=== PATIENT | female | born 1990 | race Caucasian/White ===

== ENCOUNTER 2019-08-06 16:08 | Emergency (ER) | payer MEDICAID ==
[~2019-08-06] VITALS: Ht 162.6 cm; Wt 54.0 kg
[~2019-08-06 16:08] MED LIST: CHLO25CA10 PO
[2019-08-06 16:52] LABS: HEMOGLOBIN 14.2 g/dl (12.0-16.0); MEAN PLATELET VOLUME 7.4 FL (7.4-10.4); MONOCYTES # (AUTO) 0.7 X10'3 (0-0.9)
[2019-08-06 16:53] LABS: BASOPHILS # (AUTO) 0.1 X10'3 (0-0.2); BASOPHILS % (AUTO) 0.6 % (0-1); EOSINOPHILS % (AUTO) 0.1 % (0-6); HEMATOCRIT 41.6 % (35.0-45.0); LYMPHOCYTES # (AUTO) 1.4 X10'3 (1.1-4.8); LYMPHOCYTES % (AUTO) 9.8 % (21-51); MEAN CORPUSCULAR HGB CONC 34.2 g/dL (33.0-36.5); MEAN CORPUSCULAR VOLUME 90.8 FL (78-98); NEUTROPHILS # (AUTO) 11.7 X10'3 (1.8-7.7); NEUTROPHILS % (AUTO) 84.5 % (42-75); PLATELET COUNT 605 X10'3 (140-440); RED BLOOD COUNT 4.58 X10'6 (4.20-5.60); RED CELL DISTRIBUTION WIDTH 14.8 % (11.5-14.5); WHITE BLOOD COUNT 13.8 X10'3 (4.5-11.0)
[2019-08-06 17:02] LABS: ALANINE AMINOTRANSFERASE 21 U/L (12-78); ALBUMIN 4.4 G/DL (3.4-5.0); ALBUMIN/GLOBULIN RATIO 1.4 (1.1-1.5); ALKALINE PHOSPHATASE 75 IU/L (46-116); ANION GAP 11 (8-16); ASPARTATE AMINO TRANSFERASE 19 U/L (10-37); BILIRUBIN,TOTAL 0.2 MG/DL (0.1-1.0); BLOOD UREA NITROGEN 12 MG/DL (7-18); BUN/CREATININE RATIO 15.8 (6.6-38.0); CALCIUM 9.4 MG/DL (8.5-10.1); CHLORIDE 104 MMOL/L (99-107); CREATININE 0.76 MG/DL (0.40-0.90); GLUCOSE 117 MG/DL (70-104); LIPASE 77 U/L (73-393); POTASSIUM 3.8 MMOL/L (3.5-5.1); SODIUM 138 MMOL/L (135-145); TOTAL PROTEIN 7.5 G/DL (6.4-8.2); eGFR 90 ML/MIN
[2019-08-06] MEDS ORDERED: famotidine 10mg tablet PO SCH (18:45)
[2019-08-06] MEDS ORDERED: normal saline 1000ML IV soln IVB ONE (18:45)
[2019-08-06] MEDS ORDERED: mag hydrox/Alum hydrox/simeth 30ml oral suspension PO ONE (18:45)
[2019-08-06 18:59] LABS: CLARITY,URINE CLEAR (Clear); COLOR,URINE YELLOW (Yellow); GLUCOSE, URINE NEGATIVE (Neg); KETONES,URINE 40 mg/dl (Neg); LEUKOCYTE ESTERASE ,URINE NEGATIVE (Neg); NITRITES, URINE NEGATIVE (Neg); OCCULT BLOOD,URINE TRACE-INTACT (Neg); PROTEIN,URINE TRACE mg/dl (Neg); UROBILINOGEN,URINE 0.2 E.U/dL (0.2-1.0)
[2019-08-06 19:04] LABS: URINE HCG NEGATIVE (NEG)
[2019-08-06 19:05] LABS: UA COLLECTION TYPE CLN CATCH MIDSTREAM
[2019-08-06 19:07] LABS: BACTERIA,URINE FEW /HPF (Neg); SQUAMOUS EPITHELIAL CELL,UR FEW /LPF (FEW); WBC,URINE 0-4 /HPF (0-4)
[2019-08-06] MEDS ORDERED: ondansetron 4mg rapidly disintigrating tab PO ONE (19:20)
[2019-08-06] MEDS ORDERED: acetaminophen 325mg tablet PO ONE (19:20)
[2019-08-06] MEDS ORDERED: ondansetron/PF 4mg/2ml inj IV ONE (19:25)
[2019-08-06 19:34] LABS: TROPONIN I < 0.04 NG/ML (0.0-0.05)
[2019-08-06] MEDS ORDERED: pantoprazole 40 MG vial IV ONE (19:55)
[2019-08-06] MEDS ORDERED: normal saline 1000ml 1,000 ML IV ONE (19:55)
[2019-08-06] MEDS ORDERED: PANT20TA3 PO (20:23)
[2019-08-06] MEDS ORDERED: ONDA4TAB6 PO (20:23)
[2019-08-06] MEDS ORDERED: DICY10CA88 PO (20:23)
--- NOTE | 2019-08-06 20:40 | NUR ---
DISCUSED WITH PATIENT ABOUT D/C PT REFUSNG TO GO HOME ASKING TO SPEAK TO THE DR . ROBYN LOPEZ TO BEDSIDE TO SPEAK WITH PATIENT. PT RAISING HER VOICE USING FOUL LANGUAGE ACTING HOSTILE ABOUT BEING SICHARGE. PA EXPLAINING THAT HER LABS ARE STABLE WELL HER VSS, AND THAT SHE HAS REFUSED ALL OTHER MEDICATION . PT ARUGING ABOUT HER CURRERNT SITUATION, UNABLE TO CONFIRM WHERE SHE IS STAYING SHE HAS BEEN IN [facility] SEEKING CARE. PT SASTES SHE SEES HER PRIMARY ONCE EVERY THREE MONTHS AND HE DOES NOTHING FOR HER . PT SCREAMING AND YELLING AT NURSING STAFF AND PA. SECURITY BROUGHT TO BEDSIDE . CHARGE NURSE AT [facility] TRYING TO EXPLAIN TO THE PATIENT HOW WE ARE TRYING TO RING SEWER HER CARE AND SHE IS REFUSING . PT USING OBSENITIES AND , PT SATES" U NEED EDUCATION AND A HIGHER IQ " , CALLING STAFF DUMB AND UNKNOWLEDAGABLE, YELLING . DISCONTINUED PATIENT IV, PT SIGNED DISCHARGED INSTRUCTION S, AND WAS ESCORTED OFF UNIT BY SECURITY.
--- NOTE | 2019-08-06 20:45 | NUR ---
PT ALREADY DISCHARGES / PRIOR TO UA TOXIC ORDER. PT HOSTILE . SECURITY AT BEDSIDE WELL CHARGE NURSE
[2019-08-06 20:58] VITALS: BP 120/77
== END 2019-08-06 20:47 | disposition home or self-care (01) ==
LOC: ER 16:10
DX: R10.10 Upper abdominal pain, unspecified (principal); R11.2 Nausea with vomiting, unspecified; R00.0 Tachycardia, unspecified; F12.90 Cannabis use, unspecified, uncomplicated; Z79.899 Other long term (current) drug therapy
CPT/HCPCS: 36415; 80053; 81001; 81025; 83690; 84145; 84484; 85025; 93005; 96361; 96374; 96375; 99284; C9113; J2405; J7030; 99283

== ENCOUNTER 2019-12-20 20:57 | Emergency (ER) | payer MEDICAID ==
[~2019-12-20] VITALS: Ht 162.6 cm; Wt 50.0 kg
[~2019-12-20 20:57] MED LIST changes: +ALB0.5UD IH; +BUSP10TA11 PO; -CHLO25CA10 PO; +DULO30CA52 PO; +PANT-47 PO; +PRAZ1CAP5 PO; +QUET25TA34 PO
[2019-12-20] MEDS ORDERED: diphenhydrAMINE 50 mg/ml inj IM ONE (21:20)
[2019-12-20] MEDS ORDERED: LORazepam 2 mg/ml vial IM ONE (21:20)
--- NOTE | 2019-12-20 21:27 | NUR ---
pt given ativan 2 mg im and benedryl 50 mg im. Multiple staff at bedside to hold Pt for administration. Pt dry heaving, then putting her fingers in her mouth to make heself vomit. Pt with small amt of light green watery emesis. Disposible underware put on and clean gown. Pt lying in the bed on her back and moaning and crying and turning back and forth. Unable to get qing lab work or urine at this time . Provider aware. ROBYN Mercedes updated that Pts Ezra castillo, is in the parking oot in a blue suburu if further questioning needed. Pt reprots she has cyclic vomiting, does not do drugs, and had some vodka earlier tonight. States yes that she has had ativan in the past.
--- NOTE | 2019-12-20 22:11 | NUR ---
PT REPORTS NAUSEA AND SEVERE PAIN IN HER CHEST AND STOMACH.
[2019-12-20] MEDS ORDERED: haloperidol lactate 5mg/ml inj IM ONE (22:20)
--- NOTE | 2019-12-20 22:29 | NUR ---
PT REMAINS RESTLESS AND FLAILING IN THE BED. MEDS GIVEN 1 HR AGO. Vince LOPEZ UPDATED AND DOSE OF HALDOL IM ORDERED. URINE AND LABS NOT YET COLLECTED PT TOO RESTLES. CONTINUES TO REPROTS NAUSEA AND STATES "I JUST NEED TO GET THIS OUT, WHEN PUTTING HER FINGERS DOWN HER THROAT.
--- NOTE | 2019-12-20 22:52 | NUR ---
BOYFRIENGuerrero CALABRESE CALLING FOR UPDATED ([phone]). HE IS IN THE PARKING LOT. HE REPORTS PT DOES NOT USE DRUGS AND HAS SEVERE ANXIETY DISORDER AND WHEN HER STOMACH PAIN GETS REALLY BAD SHE BEHAVES LIKE THIS. SHE IS ON A [employer] PROGRAM AND TAKING THE MED SCHEDULED (TAKES BECAUSE WEANED OFF PAIN MEDS). STATES NOT HEROIN OR METH USE AND THAT SHE ONLY HAD 1 SHOT OF VODKA TONIGHT. THEY ARE FROM OUT [place] TOWN (PAST [facility]). HE WILL BE WAITING OUT IN THE PARKING LOT. STATES THEY ARE IN TOWN TO GO CAMPING.
--- NOTE | 2019-12-20 23:12 | NUR ---
PT IS CALMER IN THE BED OVE THE PAST 20 MIN. LAB ABLE TO GET HER BLOOD WORK WITHOUT ADTL STAFF HOLDING PT. ROBYN LOPEZ AT BEDSIDE TO REEVAL. HE REPORTS APROX 6 MONTHS AGO HE
[2019-12-20 23:13] LABS: BASOPHILS # (AUTO) 0.1 X10'3 (0-0.2); EOSINOPHILS % (AUTO) 0.2 % (0-6); HEMOGLOBIN 13.2 g/dl (12.0-16.0); MEAN CORPUSCULAR HEMOGLOBIN 28.6 PG (27.0-31.0)
[2019-12-20 23:15] LABS: BASOPHILS % (AUTO) 0.4 % (0-1); EOSINOPHILS # (AUTO) 0.1 X10'3 (0-0.9); HEMATOCRIT 40.1 % (35.0-45.0); LYMPHOCYTES % (AUTO) 7.4 % (21-51); MEAN CORPUSCULAR VOLUME 86.5 FL (78-98); MEAN PLATELET VOLUME 6.5 FL (7.4-10.4); MONOCYTES # (AUTO) 1.3 X10'3 (0-0.9); MONOCYTES % (AUTO) 4.7 % (2-12); NEUTROPHILS # (AUTO) 23.8 X10'3 (1.8-7.7); NEUTROPHILS % (AUTO) 87.3 % (42-75); PLATELET COUNT 685 X10'3 (140-440); RED BLOOD COUNT 4.63 X10'6 (4.20-5.60); RED CELL DISTRIBUTION WIDTH 16.5 % (11.5-14.5)
[2019-12-20 23:17] LABS: WHITE BLOOD COUNT 27.3 X10'3 (4.5-11.0)
[2019-12-20 23:26] LABS: ALANINE AMINOTRANSFERASE 41 U/L (12-78); ALBUMIN 4.3 G/DL (3.4-5.0); ALBUMIN/GLOBULIN RATIO 1.2 (1.1-1.5); ALKALINE PHOSPHATASE 130 IU/L (46-116); ANION GAP 14 (8-16); ASPARTATE AMINO TRANSFERASE 46 U/L (10-37); BILIRUBIN,TOTAL 0.1 MG/DL (0.1-1.0); BLOOD UREA NITROGEN 10 MG/DL (7-18); BUN/CREATININE RATIO 11.5 (6.6-38.0); CALCIUM 8.9 MG/DL (8.5-10.1); CHLORIDE 107 MMOL/L (99-107); CREATININE 0.87 MG/DL (0.40-0.90); GLUCOSE 127 MG/DL (70-104); LIPASE 71 U/L (73-393); POTASSIUM 3.4 MMOL/L (3.5-5.1); SODIUM 144 MMOL/L (135-145); TOTAL CARBON DIOXIDE 22.7 MMOL/L (24-32); TOTAL PROTEIN 7.9 G/DL (6.4-8.2); eGFR 77 ML/MIN
[2019-12-20 23:44] LABS: TOTAL CELLS COUNTED 100
[2019-12-20 23:45] LABS: ANISOCYTOSIS 1+; PLATELET ESTIMATE INCREASED
[2019-12-21 00:05] LABS: CLARITY,URINE CLEAR (Clear); COLOR,URINE YELLOW (Yellow); GLUCOSE, URINE NEGATIVE (Neg); KETONES,URINE 15 mg/dl (Neg); LEUKOCYTE ESTERASE ,URINE NEGATIVE (Neg); NITRITES, URINE NEGATIVE (Neg); OCCULT BLOOD,URINE TRACE-INTACT (Neg); PROTEIN,URINE TRACE mg/dl (Neg); UROBILINOGEN,URINE 0.2 E.U/dL (0.2-1.0)
[2019-12-21 00:06] LABS: URINE HCG NEGATIVE (NEG)
[2019-12-21 00:11] LABS: UA COLLECTION TYPE CLN CATCH MIDSTREAM
--- NOTE | 2019-12-21 00:12 | NUR ---
PIV PLACED, BCX X1 AND LACTIC DRAWN. PT CONTINUES TO REPORTS NAUSEA AND SEVERE PAIN IN CHEST AND ABDOMEN. UP WITH STEADY GAIT AND AMBULATING TO BR TO HAVE SMALL SOFT BM PER HER REPORT. PROVIDED URINE SAMPLE.
[2019-12-21 00:14] LABS: BACTERIA,URINE NONE SEEN /HPF (Neg); MUCUS STRANDS MANY /LPF (Neg); RBC,URINE NONE SEEN /HPF (0-2); SQUAMOUS EPITHELIAL CELL,UR MODERATE /LPF (FEW); WBC,URINE 0-4 /HPF (0-4)
[2019-12-21 00:16] VITALS: BP 152/68
[2019-12-21] MEDS ORDERED: proCHLORperazine 10 MG/2 ml inj IV ONE (00:25)
--- NOTE | 2019-12-21 00:32 | NUR ---
COMPAZINE ORDERED. PT REPORTS TO ME SHE IS ALLERGIC TO THIS MEDS, "IT MAKES ME PANIC...MAKES ME WANNA RUN".
[2019-12-21 00:49] LABS: URINE AMPHETAMINE SCREEN NEGATIVE (Neg); URINE BARBITUATE SCREEN NEGATIVE (Neg); URINE BENZODIAZEPINES SCREEN NEGATIVE (Neg); URINE CANNABINOID SCREEN POSITIVE (Neg); URINE COCAINE SCREEN NEGATIVE (Neg); URINE METHADONE SCREEN NEGATIVE (Neg); URINE OPIATE SCREEN NEGATIVE (Neg); URINE PHENCYCLIDINE SCREEN NEGATIVE (Neg)
[2019-12-21] MEDS ORDERED: metoclopramide 5 mg/ml inj IV ONE (00:50)
[2019-12-21 00:52] LABS: CREATINE KINASE 477 U/L (26-192)
--- NOTE | 2019-12-21 00:54 | NUR ---
pt continues screaming out from room "somebody help me...im in so much pain...arn't you going to help me". Pt told that we are giving her medications for her nausea and that labs are pending and that we are tryign to help her. We will need her to calm down so that she can get a CT scan.
--- NOTE | 2019-12-21 01:02 | NUR ---
PT PULLED HER IV OUT D/T FLAILING IN THE BED. PT UPDATED THAT SHE NEEDS TO BE ABLE TO HOLD STIL FOR CT, REPORTS SHE WILL TRY.
[2019-12-21] MEDS ORDERED: iohexol 300mg/ml 100ml inj. ONE (01:07)
[2019-12-21] MEDS ORDERED: normal saline 1000ML IV soln IVB ONE (01:10)
--- NOTE | 2019-12-21 02:01 | NUR ---
PT YELLING OUT PLACING HAND IN THROAT TO CAUSE VOMIT EPISODES. WITNESSED MULTIPLE TIMES BY MYSELF AND OTHER STAFF. PT REFUSED TO SIGN DC PAPERS, REFUSED TO CHANGE OUT OF HOSPITAL GOWN AT [place]. PT YELLING AND VERY RUDE TO STAFF.
== END 2019-12-21 02:05 | disposition home or self-care (01) ==
LOC: ER 20:57
DX: R10.84 Generalized abdominal pain (principal); R11.0 Nausea; F12.90 Cannabis use, unspecified, uncomplicated; Z72.89 Other problems related to lifestyle; Z88.8 Allergy status to other drugs, medicaments and biological substances; Z79.899 Other long term (current) drug therapy
CPT/HCPCS: 36415; 71045; 74177; 80053; 80305; 81001; 81025; 82550; 83605; 83690; 84145; 85025; 87040; 96372; 99285; J1200; J1630; J2060; J7030; Q9967; 81003

== ENCOUNTER 2020-01-12 10:21 | Emergency (ER) | payer MEDICAID ==
[~2020-01-12] VITALS: Ht 162.6 cm; Wt 54.5 kg
[2020-01-12] MEDS ORDERED: LORazepam 2 mg/ml vial IM ONE (10:30)
[2020-01-12] MEDS ORDERED: normal saline 1000ML IV soln IVB ONE ×2 (10:30→11:30)
[2020-01-12] MEDS ORDERED: haloperidol lactate 5mg/ml inj IM ONE (10:50)
[2020-01-12 10:58] LABS: EOSINOPHILS # (AUTO) 0.2 X10'3 (0-0.9); EOSINOPHILS % (AUTO) 1.2 % (0-6); MEAN PLATELET VOLUME 6.6 FL (7.4-10.4); MONOCYTES # (AUTO) 0.8 X10'3 (0-0.9)
[2020-01-12 11:00] LABS: BASOPHILS % (AUTO) 0.3 % (0-1); HEMATOCRIT 42.5 % (35.0-45.0); HEMOGLOBIN 13.7 g/dl (12.0-16.0); LYMPHOCYTES # (AUTO) 2.3 X10'3 (1.1-4.8); LYMPHOCYTES % (AUTO) 16.2 % (21-51); MEAN CORPUSCULAR HGB CONC 32.3 g/dL (33.0-36.5); MEAN CORPUSCULAR VOLUME 86.9 FL (78-98); MONOCYTES % (AUTO) 5.4 % (2-12); NEUTROPHILS % (AUTO) 76.9 % (42-75); PLATELET COUNT 750 X10'3 (140-440); RED BLOOD COUNT 4.89 X10'6 (4.20-5.60); RED CELL DISTRIBUTION WIDTH 17.1 % (11.5-14.5); WHITE BLOOD COUNT 14.3 X10'3 (4.5-11.0)
[2020-01-12 11:28] LABS: ALANINE AMINOTRANSFERASE 43 U/L (12-78); ALBUMIN 4.1 G/DL (3.4-5.0); ALBUMIN/GLOBULIN RATIO 1.1 (1.1-1.5); ALKALINE PHOSPHATASE 105 IU/L (46-116); ANION GAP 10 (8-16); ASPARTATE AMINO TRANSFERASE 29 U/L (10-37); BILIRUBIN,TOTAL 0.1 MG/DL (0.1-1.0); BLOOD UREA NITROGEN 14 MG/DL (7-18); BUN/CREATININE RATIO 15.1 (6.6-38.0); CALCIUM 9.6 MG/DL (8.5-10.1); CHLORIDE 106 MMOL/L (99-107); CREATININE 0.93 MG/DL (0.40-0.90); GLUCOSE 165 MG/DL (70-104); LIPASE 154 U/L (73-393); MAGNESIUM 2.1 MG/DL (1.5-2.4); POTASSIUM 4.4 MMOL/L (3.5-5.1); SODIUM 141 MMOL/L (135-145); TOTAL CARBON DIOXIDE 24.9 MMOL/L (24-32); TOTAL PROTEIN 7.8 G/DL (6.4-8.2); eGFR 71 ML/MIN
--- NOTE | 2020-01-12 11:43 | NUR ---
Pt reports "I need to take my meds!" When asked about her meds she said they are at the hotel with her boyfriend. She insisted I take out her IV so she can call her boyfriend to come get her and let her take her medications. Provider ROBYN Silver notified of the above, AMA form signed.
[2020-01-12 11:44] VITALS: BP 153/97
== END 2020-01-12 11:43 | disposition left against medical advice (07) ==
LOC: ER 10:21
DX: R10.33 Periumbilical pain (principal); R11.2 Nausea with vomiting, unspecified; F12.90 Cannabis use, unspecified, uncomplicated; Z88.8 Allergy status to other drugs, medicaments and biological substances; Z79.899 Other long term (current) drug therapy
CPT/HCPCS: 36415; 71045; 80053; 83605; 83690; 83735; 84145; 84484; 85025; 87040; 93005; 96360; 96372; 99285; J1630; J2060; J7030; 99284

== ENCOUNTER 2020-01-12 18:25 | Emergency (ER) | payer MEDICAID ==
[~2020-01-12] VITALS: Ht 162.6 cm; Wt 52.7 kg
--- NOTE | 2020-01-12 18:38 | NUR ---
at bedside examining patient at this time. Pt. stating that pain never left since initial onsent this AM. She states that she left AMA due to fear that medications given here would interfere with meds that she takes at home. She is claiming to be on a suboxone treatment program for pain, but denies hx. of drug use except for marijuana.
[2020-01-12] MEDS ORDERED: normal saline 1000ml 1,000 ML IV ONE (18:45)
[2020-01-12] MEDS ORDERED: haloperidol lactate 5mg/ml inj IM ONE (18:45)
[2020-01-12] MEDS ORDERED: diphenhydrAMINE 50 mg/ml inj IM ONE ×2 (18:45→20:05)
[2020-01-12 19:34] LABS: HCG SERUM QL NEGATIVE
[2020-01-12] MEDS ORDERED: ondansetron/PF 4mg/2ml inj IV ONE (19:40)
[2020-01-12 22:00] VITALS: BP 133/96
== END 2020-01-12 22:09 | disposition home or self-care (01) ==
LOC: ER 18:25
DX: G89.29 Other chronic pain (principal); R10.9 Unspecified abdominal pain; R11.15 Cyclical vomiting syndrome unrelated to migraine; R11.2 Nausea with vomiting, unspecified; R07.89 Other chest pain; F17.200 Nicotine dependence, unspecified, uncomplicated; F12.90 Cannabis use, unspecified, uncomplicated; Z72.89 Other problems related to lifestyle; Z88.8 Allergy status to other drugs, medicaments and biological substances; Z79.899 Other long term (current) drug therapy
CPT/HCPCS: 36415; 83605; 84703; 96361; 96372; 96374; 99284; J1200; J1630; J2405; J7030

== ENCOUNTER 2020-02-27 16:47 | Emergency (ER) | payer MEDICAID ==
[~2020-02-27] VITALS: Ht 162.6 cm; Wt 60.0 kg
[2020-02-27 16:54] VITALS: BP 122/59
[2020-02-27 18:43] LABS: BASOPHILS % (AUTO) 0.4 % (0-1); EOSINOPHILS # (AUTO) 0.1 X10'3 (0-0.9); EOSINOPHILS % (AUTO) 1.6 % (0-6); HEMATOCRIT 38.3 % (35.0-45.0); HEMOGLOBIN 12.6 g/dl (12.0-16.0); LYMPHOCYTES # (AUTO) 1.6 X10'3 (1.1-4.8); LYMPHOCYTES % (AUTO) 22.2 % (21-51); MEAN CORPUSCULAR HEMOGLOBIN 28.4 PG (27.0-31.0); MEAN CORPUSCULAR VOLUME 86.1 FL (78-98); MEAN PLATELET VOLUME 6.6 FL (7.4-10.4); MONOCYTES % (AUTO) 14.5 % (2-12); NEUTROPHILS # (AUTO) 4.4 X10'3 (1.8-7.7); NEUTROPHILS % (AUTO) 61.3 % (42-75); PLATELET COUNT 549 X10'3 (140-440); RED BLOOD COUNT 4.45 X10'6 (4.20-5.60); RED CELL DISTRIBUTION WIDTH 15.3 % (11.5-14.5); WHITE BLOOD COUNT 7.2 X10'3 (4.5-11.0)
[2020-02-27 19:04] LABS: ALANINE AMINOTRANSFERASE 39 U/L (12-78); ALBUMIN 3.7 G/DL (3.4-5.0); ALKALINE PHOSPHATASE 128 IU/L (46-116); ANION GAP 9 (8-16); ASPARTATE AMINO TRANSFERASE 39 U/L (10-37); BILIRUBIN,TOTAL 0.3 MG/DL (0.1-1.0); BLOOD UREA NITROGEN 12 MG/DL (7-18); BUN/CREATININE RATIO 12.9 (6.6-38.0); CALCIUM 8.8 MG/DL (8.5-10.1); CHLORIDE 104 MMOL/L (99-107); CREATININE 0.93 MG/DL (0.40-0.90); ETHANOL < 0.010 GM/DL (0.0-0.010); GLUCOSE 91 MG/DL (70-104); POTASSIUM 3.4 MMOL/L (3.5-5.1); SODIUM 140 MMOL/L (135-145); TOTAL CARBON DIOXIDE 26.6 MMOL/L (24-32); TOTAL PROTEIN 7.4 G/DL (6.4-8.2); eGFR 71 ML/MIN
--- NOTE | 2020-02-27 19:18 | NUR ---
Patient refuses to provide urine sample. Requested the patient that she attempt which she also refuses.
--- NOTE | 2020-02-27 20:00 | NUR ---
Patient was found attempting to sneak out of ED. Patient wanted to leave to, "give her friend a hug." Patient was reminded that she has been placed on a mental health hold after telling the EDPA that she wanted to kill herself over breaking up with her boyfriend. She became agressive and was yelling profanities and threats. Security was called and the patient was escourted to her room. Several attempts were made by several staff members to verbally de-escalate her unsuccessfully by several staff members. She continued to make threats and scream profanities. She then stated that, "I just wanted a place to stay. I don't want to kill myself, I'm homeless."
--- NOTE | 2020-02-27 20:10 | NUR ---
SPOKE TO PROVIDER MIRIAM RE: PT AMPLIFYING, SHE STATES SHE WILL COME AND TALK TO PT AND PUT IN ORDERS FOR B52
[2020-02-27] MEDS ORDERED: LORazepam 2 mg/ml vial IM ONE (20:20)
[2020-02-27] MEDS ORDERED: diphenhydrAMINE 50 mg/ml inj IM ONE (20:20)
[2020-02-27] MEDS ORDERED: haloperidol lactate 5mg/ml inj IM ONE (20:20)
[2020-02-27] MEDS ORDERED: ALBU8HFA PO (20:55)
--- NOTE | 2020-02-27 21:25 | NUR ---
Patient now sleeping comfortably on her left side with even, unlabored respirations.
--- NOTE | 2020-02-28 00:06 | NUR ---
pt awake, she was able to ambulate with no issues.
== END 2020-02-28 00:09 | disposition home or self-care (01) ==
LOC: ER 16:48
DX: R59.0 Localized enlarged lymph nodes (principal); R05 Cough; F12.90 Cannabis use, unspecified, uncomplicated; Z72.89 Other problems related to lifestyle; Z88.8 Allergy status to other drugs, medicaments and biological substances; Z79.899 Other long term (current) drug therapy
CPT/HCPCS: 36415; 71045; 80053; 80320; 85025; 96372; 99284; J1200; J1630; J2060